=== PATIENT | female | born 1985 | race African-American/Black ===

== ENCOUNTER 2016-09-18 22:17 | Emergency (ER) | payer OTHER ==
[~2016-09-18] VITALS: Ht 165.1 cm; Wt 49.0 kg
[~2016-09-18 22:17] MED LIST: AMOXICILLIN 50500 M1 PO; HYDROCODON-ACE1 EAC7 PO; IBUPROFEN 400400 M1 PO; TRAMADOL 50 MG50 MG PO; ZOFRAN ODT4 MG PO
[2016-09-18] MEDS ORDERED: VENTOLIN HFA 1818 GM INH (23:03)
[2016-09-19 04:59] VITALS: BP 120/70
== END 2016-09-19 01:08 | disposition home or self-care (01) ==
LOC: ER 22:17
DX: R06.00 Dyspnea, unspecified (principal); J45.909 Unspecified asthma, uncomplicated

== ENCOUNTER 2016-10-19 10:40 | Emergency (ER) | payer OTHER ==
[~2016-10-19] VITALS: Ht 165.1 cm; Wt 49.9 kg
[~2016-10-19 10:40] MED LIST changes: +VENTOLIN HFA 1818 GM INH
[2016-10-19] MEDS ORDERED: PREDNISONE 20 M20 MG PO (10:42)
[2016-10-19] MEDS ORDERED: QVAR8.7 G1 IH (10:43)
[2016-10-19] MEDS ORDERED: ZANTAC 150MG T150 MG PO (12:52)
[2016-10-19 13:13] VITALS: BP 110/56
== END 2016-10-19 13:14 | disposition home or self-care (01) ==
LOC: ER 10:40
DX: K29.70 Gastritis, unspecified, without bleeding (principal); J45.909 Unspecified asthma, uncomplicated

== ENCOUNTER 2016-11-11 11:58 | Emergency (ER) | payer OTHER ==
[~2016-11-11] VITALS: Ht 175.3 cm; Wt 68.0 kg
[~2016-11-11 11:58] MED LIST changes: +PREDNISONE 20 M20 MG PO; +QVAR8.7 G1 IH; +ZANTAC 150MG T150 MG PO
[2016-11-11 12:02] VITALS: BP 100/56
[2016-11-11] MEDS ORDERED: CLARITIN10 MG PO (12:12)
== END 2016-11-11 13:04 | disposition home or self-care (01) ==
LOC: ER 11:58
DX: F43.9 Reaction to severe stress, unspecified (principal); J45.909 Unspecified asthma, uncomplicated

== ENCOUNTER 2017-01-08 09:21 | Emergency (ER) | payer OTHER ==
[~2017-01-08] VITALS: Ht 165.1 cm; Wt 49.9 kg
[~2017-01-08 09:21] MED LIST changes: +CLARITIN10 MG PO
[2017-01-08 09:45] LABS: URINE BILIRUBIN NEGATIVE (Negative); URINE BLOOD TRACE (Negative); URINE COLOR YELLOW; URINE GLUCOSE-RANDOM* NEGATIVE (Negative); URINE KETONES NEGATIVE (Negative); URINE PROTEIN (DIPSTICK) NEGATIVE (Negative); URINE SPECIFIC GRAVITY 1.025 (1.003-1.035); URINE UROBILINOGEN 0.2 E.U./dl (0.2-1.0)
[2017-01-08 09:46] LABS: URINE LEUKOCYTES-REFLEX TRACE (Negative)
[2017-01-08] MEDS ORDERED: DIFLUCAN150 MG PO (10:02)
[2017-01-08 10:21] VITALS: BP 109/66
[2017-01-09 21:08] LABS: CHLAMYDIA TRACHOMATIS-PCR Negative (Negative); NEISSERIA GONORRHEA-PCR Negative (Negative)
== END 2017-01-08 10:29 | disposition home or self-care (01) ==
LOC: ER 09:21
PROVIDERS: Physician Assistant
DX: B37.9 Candidiasis, unspecified (principal); N89.8 Other specified noninflammatory disorders of vagina; J45.909 Unspecified asthma, uncomplicated

== ENCOUNTER 2017-01-31 18:03 | Emergency (ER) | payer OTHER ==
[~2017-01-31] VITALS: Ht 165.1 cm; Wt 49.0 kg
[~2017-01-31 18:03] MED LIST changes: +DIFLUCAN150 MG PO
[2017-01-31 18:05] VITALS: BP 94/51
[2017-01-31 18:23] LABS: URINE BILIRUBIN NEGATIVE (Negative); URINE BLOOD NEGATIVE (Negative); URINE COLOR YELLOW; URINE GLUCOSE-RANDOM* NEGATIVE (Negative); URINE KETONES NEGATIVE (Negative); URINE LEUKOCYTES-REFLEX 1+ (Negative); URINE PROTEIN (DIPSTICK) NEGATIVE (Negative); URINE UROBILINOGEN 0.2 E.U./dl (0.2-1.0)
[2017-01-31 18:44] LABS: CASTS None Seen /LPF (None Seen); CRYSTALS None Seen /LPF (None Seen); SQUAMOUS 0-3 Few /LPF (0-3); URINE RBC None Seen /HPF (0-2)
[2017-01-31] MEDS ORDERED: MACROBID 100 M100 M1 PO (18:46)
[2017-01-31] MEDS ORDERED: PHENAZOPYRIDIN200 M2 PO (18:46)
== END 2017-01-31 19:00 | disposition home or self-care (01) ==
LOC: ER 18:03
PROVIDERS: Physician Assistant
DX: N39.0 Urinary tract infection, site not specified (principal); J45.909 Unspecified asthma, uncomplicated

== ENCOUNTER 2017-05-31 16:10 | Emergency (ER) | payer OTHER ==
[~2017-05-31] VITALS: Ht 165.1 cm; Wt 47.2 kg
--- NOTE | ~2017-05-31 | EKG ---
[address] [address] ELECTROCARDIOGRAM REPORT Name: AGATHA ZACARIAS [facility] [id number] Admission: 05/31/17 Attend Phys: Discharge: 05/31/17 Date of : 89 Report #: [id number] THIS REPORT FOR: //name// [facility] ED Test Date: 2017-05-31 Test Time: 16:31:35 Pat Name: AGATHA ZACARIAS Department: Room: Gender: F Lab Analyst: MZOOK : 1985 Requested By: William Lui Order Number: [id number] MD: Bradley Rain Measurements Intervals [place] Rate: 57 P: 76 WI: 152 QRS: 69 QRSD: 76 T: 60 QT: 382 QTc: 372 Interpretive Statements Sinus bradycardia Otherwise normal tracing No previous ECG available for comparison Electronically Signed On 06-01-2017 8:24:00 CDT by Bradley Rain [email or web address] <ELECTRONICALLY SIGNED> By: Bradley Rain MD, [facility] 06/01/17 0824 1631 1631 Bradley Rain MD, FACC /EPI
[~2017-05-31 16:10] MED LIST changes: +MACROBID 100 M100 M1 PO; +PHENAZOPYRIDIN200 M2 PO
[2017-05-31 16:31] LABS: URINE BILIRUBIN NEGATIVE (Negative); URINE BLOOD NEGATIVE (Negative); URINE CLARITY CLEAR; URINE COLOR YELLOW; URINE GLUCOSE-RANDOM* NEGATIVE (Negative); URINE KETONES NEGATIVE (Negative); URINE LEUKOCYTES-REFLEX NEGATIVE (Negative); URINE NITRITE-REFLEX NEGATIVE (Negative); URINE PROTEIN (DIPSTICK) TRACE (Negative); URINE SPECIFIC GRAVITY >= 1.030 (1.005-1.035); URINE UROBILINOGEN 0.2 E.U./dl (0.2-1.0)
[2017-05-31 16:39] LABS: AMP/METHAMP Negative (Negative); BARBITURATES Negative (Negative); BENZODIAZEPINES Negative (Negative); COCAINE Negative (Negative); METHADONE Negative (Negative); OPIATES Negative (Negative); PCP Negative (Negative)
[2017-05-31 17:00] LABS: ABSOLUTE NEUTROPHILS 6.6 thou/uL (1.4-8.2); BASOPHILS 0.6 % (0.0-2.0); EOSINOPHILS 0.2 % (0.0-3.0); HEMATOCRIT 42.1 % (37.0-47.0); HEMOGLOBIN 14.2 gm/dL (12.0-15.0); LYMPHOCYTES 9.7 % (24.0-44.0); MCH 30.8 pg (26.0-34.0); MCHC 33.8 g/dL (28.0-37.0); MCV 91.2 fL (80.0-100.0); MONOCYTES 5.8 % (1.0-8.0); PLATELET COUNT 215 thou/uL (150-400); POLYS 83.7 % (36.0-66.0); RBC 4.61 mil/uL (4.20-5.00); RDW 12.7 % (10.5-14.5); WBC 7.9 thou/uL (4.0-11.0)
[2017-05-31 17:07] LABS: CREATININE 0.9 mg/dL (0.6-1.0); POTASSIUM 4.4 mmol/L (3.5-5.1)
[2017-05-31] MEDS ORDERED: IBUPROFEN 600600 M1 PO (17:13)
[2017-05-31 17:45] VITALS: BP 97/58
== END 2017-05-31 17:46 | disposition home or self-care (01) ==
LOC: ER 16:10
PROVIDERS: Nurse Practitioner
DX: R51 Headache (principal); R53.1 Weakness; J45.909 Unspecified asthma, uncomplicated

== ENCOUNTER 2017-06-12 17:47 | Emergency (ER) | payer OTHER ==
[~2017-06-12] VITALS: Ht 165.1 cm; Wt 48.5 kg
[~2017-06-12 17:47] MED LIST changes: +IBUPROFEN 600600 M1 PO
[2017-06-12] MEDS ORDERED: MEDROLDOSEPACK PO (18:12)
[2017-06-12 19:02] VITALS: BP 102/61
== END 2017-06-12 19:07 | disposition home or self-care (01) ==
LOC: ER 17:47
DX: L30.9 Dermatitis, unspecified (principal); J45.909 Unspecified asthma, uncomplicated

== ENCOUNTER 2017-08-18 16:28 | Emergency (ER) | payer OTHER ==
[~2017-08-18] VITALS: Ht 165.1 cm; Wt 49.4 kg
[~2017-08-18 16:28] MED LIST changes: +MEDROLDOSEPACK PO
[2017-08-18 16:45] LABS: URINE BILIRUBIN NEGATIVE (Negative); URINE BLOOD NEGATIVE (Negative); URINE CLARITY CLEAR; URINE COLOR YELLOW; URINE GLUCOSE-RANDOM* NEGATIVE (Negative); URINE KETONES NEGATIVE (Negative); URINE LEUKOCYTES NEGATIVE (Negative); URINE NITRITE NEGATIVE (Negative); URINE PROTEIN (DIPSTICK) NEGATIVE (Negative); URINE SPECIFIC GRAVITY 1.015 (1.005-1.035); URINE UROBILINOGEN 0.2 E.U./dl (0.2-1.0)
[2017-08-18 18:52] VITALS: BP 110/76
== END 2017-08-18 18:45 | disposition home or self-care (01) ==
LOC: ER 16:28
PROVIDERS: Emergency Medicine
DX: Z32.01 Encounter for pregnancy test, result positive (principal); J45.909 Unspecified asthma, uncomplicated

== ENCOUNTER 2019-09-04 10:35 | Emergency (ER) | payer OTHER ==
[~2019-09-04] VITALS: Ht 162.6 cm; Wt 49.9 kg
[~2019-09-04 10:35] MED LIST changes: +FLEXERIL PO; +PRENA1 TRUE CO1 EACH PO
[2019-09-04] MEDS ORDERED: PREDNISONE 20 M20 MG PO (12:07)
[2019-09-04] MEDS ORDERED: CLARITIN10 MG PO (12:07)
[2019-09-04 12:24] VITALS: BP 97/55
== END 2019-09-04 12:25 | disposition home or self-care (01) ==
LOC: ER 10:35
DX: L25.9 Unspecified contact dermatitis, unspecified cause (principal); J45.909 Unspecified asthma, uncomplicated; Z79.899 Other long term (current) drug therapy; Z91.048 Other nonmedicinal substance allergy status

== ENCOUNTER 2020-05-28 21:55 | Emergency (ER) | payer OTHER ==
[~2020-05-28] VITALS: Ht 162.6 cm; Wt 49.4 kg
[2020-05-28] MEDS ORDERED: NORCO5 PO (22:38)
[2020-05-28] MEDS ORDERED: DEXACIDIN EYE DR5 ML OPHTHALMIC (22:38)
[2020-05-28 22:45] VITALS: BP 121/60
== END 2020-05-28 22:47 | disposition home or self-care (01) ==
LOC: ER 21:55
DX: S05.01XA Injury of conjunctiva and corneal abrasion without foreign body, right eye, initial encounter (principal); J45.909 Unspecified asthma, uncomplicated; Z79.899 Other long term (current) drug therapy; Z91.048 Other nonmedicinal substance allergy status; W22.8XXA Striking against or struck by other objects, initial encounter; Y93.89 Activity, other specified; Y92.59 Other trade areas as the place of occurrence of the external cause; Y99.8 Other external cause status

== ENCOUNTER 2020-06-05 09:31 | Emergency (ER) | payer OTHER ==
[~2020-06-05] VITALS: Ht 162.6 cm; Wt 49.0 kg
[~2020-06-05 09:31] MED LIST changes: +DEXACIDIN EYE DR5 ML OPHTHALMIC; +NORCO5 PO
[2020-06-05 11:30] VITALS: BP 118/64
== END 2020-06-05 11:35 | disposition home or self-care (01) ==
LOC: ER 09:31
DX: Z20.2 Contact with and (suspected) exposure to infections with a predominantly sexual mode of transmission (principal); J45.909 Unspecified asthma, uncomplicated; Z79.899 Other long term (current) drug therapy; Z91.09 Other allergy status, other than to drugs and biological substances

== ENCOUNTER 2020-10-31 18:17 | Emergency (ER) | payer OTHER ==
[~2020-10-31] VITALS: Ht 162.6 cm; Wt 49.9 kg
[2020-10-31] MEDS ORDERED: VISTARIL 25 MG25 M1 PO (19:24)
[2020-10-31 20:36] VITALS: BP 121/75
== END 2020-10-31 20:36 | disposition home or self-care (01) ==
LOC: ER 18:17
DX: R06.02 Shortness of breath (principal); F41.9 Anxiety disorder, unspecified; J45.909 Unspecified asthma, uncomplicated; Z79.899 Other long term (current) drug therapy; Z91.09 Other allergy status, other than to drugs and biological substances

== ENCOUNTER 2020-11-24 18:05 | Emergency (ER) | payer OTHER ==
[~2020-11-24] VITALS: Ht 162.6 cm; Wt 50.8 kg
[~2020-11-24 18:05] MED LIST changes: +VISTARIL 25 MG25 M1 PO
[2020-11-24] MEDS ORDERED: PREDNISONE 20 M20 MG PO ×2 (19:02→20:08)
== END 2020-11-24 20:09 | disposition home or self-care (01) ==
LOC: ER 18:05
DX: R21 Rash and other nonspecific skin eruption (principal); J45.909 Unspecified asthma, uncomplicated; F41.9 Anxiety disorder, unspecified